=== PATIENT | male | born 1980 | race Caucasian/White ===

== ENCOUNTER 2018-04-19 06:13 | Day surgery (SDC) | payer OTHER ==
--- NOTE | ~2018-04-19 | OP ---
PATIENT NAME: BILL PORTER MEDICAL RECORD: [id number] :82 LOCATION:[facility] ADMISSION DATE: SURGEON: RIVER SMITH MD DATE OF OPERATION: 04/19/2018 PREOPERATIVE DIAGNOSIS: Numerous subcutaneous masses, likely lipomas. Please see the sites below. POSTOPERATIVE DIAGNOSIS: Numerous subcutaneous masses, likely lipomas. Please see the sites below. PROCEDURES: 1. Excision of a large posterior neck mass with frozen section diagnosis of a lipoma. 2. Excision of a right chest wall mass. 3. Excision of a right forearm subcutaneous mass. 4. Excision of a left posterior auricular subcutaneous mass. 5. Removal of a subcutaneous mass from the left neck. SURGEON: River Smith MD GYRO COMPASS TESTER: None. BLOOD LOSS: 100 cc. ANESTHESIA: General. COMPLICATIONS: None. The risks, possible complications, and alternatives to the procedure were explained to the patient. He elects to proceed. The discussion specifically included, but was not limited to, bleeding requiring emergency reoperation; infection; cranial nerve XI injury; regrowth of the masses; and the possibility that one mass, particularly the posterior neck mass which was very large, could represent a liposarcoma. OPERATIVE COURSE: The patient was conveyed to the operating room electively on 04/19/2018. General anesthesia was induced by the anesthesia staff. The operative sites were sterilely prepped and draped. I first removed the posterior neck mass through the use of double curvilinear incisions. I excised the some skin overlying the mass as there going to be a lot of redundant skin that was going to be difficult to close after this mass was removed. I dissected down to lobular adipose tissue and this was removed bluntly. It was removed in 2 portions. These were sent to the pathologist for pathologic examination and the frozen section diagnosis was that of a lipoma. I excised additional surrounding connective tissue. Meticulous hemostasis was achieved with electrocautery. The subdermis was approximated with interrupted 3-0 Vicryl. The skin was approximated with a running intracuticular 3-0 Vicryl. The other masses were all excised in a like fashion. I made an incision over the masses. I then dissected down to these lipomatous-appearing masses. They were extirpated bluntly. Additional surrounding connective tissue was excised. Meticulous hemostasis was achieved with the electrocautery. The subdermis was approximated with interrupted 3-0 Vicryl. The skin was approximated with OPERATIVE REPORT [id number] BILL PORTER running intracuticular 3-0 Vicryls. Benzoin and Steri-Strips were applied. The patient was then extubated and conveyed to the postanesthesia care unit. There is no need for the patient to follow up with me in the office unless he develops a complication related to this operative procedure. I will see him on rounds out at the assisted. 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 TRANSINT:[id number] Voice Confirmation ID: [id number] DOCUMENT ID: [id number] RIVER SMITH MD CC: [id number] DICTATION DATE: 05/10/18 [address]: 05/10/181922 [facility] 04/19/18 [address] [address] [place] [address]
[2018-04-19] MEDS ORDERED: HCTZ25 MG PO (07:37)
[2018-04-19] MEDS ORDERED: NAPROSYN500 MG PO (07:37)
[2018-04-19 07:38] LABS: BASOPHILS 0.3 % (0-2); EOSINOPHILS 1.4 % (0-7); HEMATOCRIT 40.5 % (42.0-54.0); HEMOGLOBIN 14.5 g/dL (13.5-17.5); IMMATURE GRANULOCYTES 0.2 % (0-5); LYMPHOCYTES 32.4 % (15-50); MCH 30.8 pg (26.0-34.0); MCHC 35.8 g/dL (31.0-37.0); MEAN PLATELET VOLUME 9.7 fL (7.4-10.4); MONOCYTES 6.6 % (2-11); NEUTROPHILS 59.1 % (40-80); PLATELET COUNT 175 10x3/uL (130-400); RBC 4.71 10x6/uL (4.20-6.10); RDW 12.6 % (11.5-14.5); WBC 6.2 10x3/uL (4.8-10.8)
[2018-04-19] MEDS ORDERED: PAXIL20 MG PO (07:39)
[2018-04-19] MEDS ORDERED: VERAPAMIL HCL40 MG PO (07:40)
[2018-04-19] MEDS ORDERED: DILANTIN30 MG PO (07:40)
[2018-04-19 07:42] VITALS: BP 137/89; Wt 96.2 kg
--- NOTE | 2018-04-19 13:55 | NUR ---
REC'D FROM [facility] ACCOMPANIED BY [facility] OFFICER. DRESSINGS NOTED TO RIGHT ARM, CHEST AREA AND NECK. SCANT AMT OF DRAINAGE NOTED ON THE DRESSING TO THE NECK. FL TRAY BROUGHT TO PT.
--- NOTE | 2018-04-19 14:25 | NUR ---
TOLERATED FL TRAY. DRESSINGS INTACT TO LIPOMA SITE REMOVAL X5. [facility]ERS AT BEDSIDE.
--- NOTE | 2018-04-19 14:55 | NUR ---
IV DC'D WITH CATHETER INTACT. DRESSINGS REINFORCED TO NECK SURGERY SITES. [facility] AT BEDSIDE.
--- NOTE | 2018-04-19 15:20 | NUR ---
WRITTEN AND VERBAL DC INST. GIVEN TO PT AND [facility] OFF[facility]ERS ALONG WITH RX. VERBALIZED UNDERSTANDING.
--- NOTE | 2018-04-19 15:30 | NUR ---
DC'D TO [facility] ACCOMPANIED BY [facility] OFFICERS VIA FACILITY VEHICLE. TAKEN TO VEHICLE VIA WC. STABLE AT TIME OF DC.
== END 2018-04-19 15:30 | disposition home or self-care (01) ==
LOC: D.OPS 06:13
PROVIDERS: Anesthesiology; ATTEND Surgery
DX: D17.0 Benign lipomatous neoplasm of skin and subcutaneous tissue of head, face and neck (principal); D17.1 Benign lipomatous neoplasm of skin and subcutaneous tissue of trunk; D17.21 Benign lipomatous neoplasm of skin and subcutaneous tissue of right arm; Z01.812 Encounter for preprocedural laboratory examination